=== PATIENT | female | born 1970 | race Hispanic/Latino ===

== ENCOUNTER 2018-11-23 07:52 | Outpatient (CLI) | payer OTHER ==
--- NOTE | 2018-11-23 09:49 | ULT ---
ULTRASOUND ABDOMEN: HISTORY: GERD. Abdominal pain. FINDINGS: The liver, pancreas, spleen, gallbladder, kidneys, and visualized portions of the aorta and IVC appea r normal. The common duct measures 2 mm in diameter. No free fluid is seen. IMPRESSION: Normal exam. POS: OFF
== END 2018-11-23 07:53 | disposition home or self-care (01) ==
LOC: BICULT 07:52
DX: K21.9 Gastro-esophageal reflux disease without esophagitis (principal); R10.9 Unspecified abdominal pain
CPT/HCPCS: 76700

== ENCOUNTER 2019-01-09 12:51 | Outpatient (CLI) | payer SELFPAY ==
[2019-01-09 14:23] LABS: #Eosinphils 0.2 thou/uL (0.0-0.7); #Monocytes 0.5 thou/uL (0.11-0.59); #Neutrophils 4.1 thou/uL (1.40-6.50); %Basophils 0.6 % (0.0-1.0); %Eosinophils 3.5 % (0.0-10.0); %Lymphocytes 29.5 % (21.0-51.0); %Monocytes 6.8 % (0.0-10.0); %Neutrophils 59.5 % (42.0-75.0); Hemoglobin 12.8 g/dL (12.0-16.0); Mean Corpuscular HGB CONC 32.6 g/dL (32.0-36.0); Mean Corpuscular Hemoglobin 30.2 pg (27.0-31.0); Mean Corpuscular Volume 92.6 fL (78.0-98.0); Mean Platelet Volume 7.7 fL (7.4-10.4); Platelet Count 302 thou/uL (130-400); RBC Distribution Width 13.3 % (11.5-14.5); Red Blood Cell (RBC) Count 4.24 mill/uL (4.20-5.40); White Blood Cell (WBC) Count 6.9 thou/uL (4.8-10.8)
[2019-01-09 14:48] LABS: ALT (SGPT) 21 U/L (8-55); AST (SGOT) 19 U/L (5-34); Albumin 4.2 g/dL (3.5-5.0); Alkaline Phosphatase 72 U/L (40-110); Anion Gap 9 mmol/L (10-20); BUN (Urea Nitrogen) 11 mg/dL (7.0-18.7); Bilirubin, Total 0.3 mg/dL (0.2-1.2); Calc. Creatinine Clearance 0 mL/min (70-130); Calcium 9.7 mg/dL (7.8-10.44); Carbon Dioxide 30 mmol/L (22-29); Chloride 105 mmol/L (98-107); Estimated GFR-MDRD 78; Globulin 3.3 g/dL (2.4-3.5); Glucose 93 mg/dL (70-105); Potassium 3.9 mmol/L (3.5-5.1); Protein, Total 7.5 g/dL (6.0-8.3); Sodium 140 mmol/L (136-145)
[2019-01-09 14:51] LABS: BHCG - Serum Negative (NEGATIVE); Pregs Control Background? CLEAR/WHITE (CLR/WHITE); Pregs Control Bar Appear? YES (CONTROL BAR)
== END 2019-01-09 12:52 | disposition home or self-care (01) ==
LOC: LABBT 12:51
PROVIDERS: ATTEND Surgery
DX: Z01.818 Encounter for other preprocedural examination (principal); K43.2 Incisional hernia without obstruction or gangrene
CPT/HCPCS: 80053; 84703; 85025; 93005; 93010

== ENCOUNTER 2019-01-24 06:00 | Inpatient (IN) | payer OTHER, SELFPAY ==
[2019-01-09 13:05] VITALS: BMI 27.3
[2019-01-24] MEDS ORDERED: Lidocaine 2% PF 5 ML VIAL ONE (06:45)
[2019-01-24] MEDS ORDERED: Bupivacaine 0.25% HCL 30 ML VIAL ONE (06:45)
[2019-01-24] MEDS ORDERED: Lidocaine 2% w/Epinephrine 1:200K 20 ML VIAL ONE (06:45)
[2019-01-24] MEDS ORDERED: Fentanyl 100 MCG/2 ML VIAL ONE ×2 (06:55→08:50)
[2019-01-24] MEDS ORDERED: Midazolam HCl 2 mg/2 ml Vial ONE (07:11)
--- NOTE | 2019-01-24 09:21 | OP ---
DATE OF PROCEDURE: 01/24/2019 PREOPERATIVE DIAGNOSIS: Incisional ventral hernia. PROCEDURES PERFORMED: Open ventral hernia repair, appendectomy. INDICATIONS: This is a 48-year-old female, who had several C-sections through a low midline incision. She developed an enlarging ventral hernia that was causing a lot of discomfort. FINDINGS: There is about an 8 cm defect, very large hernia sac. The appendix was about 8 inches long, very thin and was stuck within the adhesions in the hernia sac. DESCRIPTION OF PROCEDURE: After informed consent was obtained, the patient was taken to the operating room and given general endotracheal anesthesia. She was placed in supine position. Abdomen was prepped and draped in usual fashion. Local anesthesia was infiltrated subcutaneously and deep. A low midline incision was performed and the hernia sac was dissected out circumferentially. The hernia sac was then opened and lysis of adhesions was performed to reduce omentum that was within the hernia sac. I noticed there is really thin like 1.5 mm band that seemed just like thickened scar tissue or adhesion. It turned out to be a segment of very long appendix, so wind up dividing the mesoappendix between clamps and tying with 2-0 Vicryl suture. The base of the appendix was doubly ligated with ties and divided, sent to Pathology for further analysis. Because of this appendectomy, I was little hesitant about placing mesh. I was able to free up the fascia ledges. The fascia was closed with interrupted [id number] of #1 Prolene. Hemostasis was achieved with electrocautery. Now due to the fact that was a large hernia sac, there was a defect of subcu and so a drain was placed and brought out laterally through a separate stab wound. Then, the hemostasis was assured. The wound was thoroughly irrigated. Subcu reapproximated with interrupted 3-0 Vicryl. Skin was closed with a running subcuticular 4-0 Rapide. Steri-Strips applied. An abdominal binder was applied. The patient tolerated the procedure well, transferred to Recovery in good condition. Job ID: [id number]
[2019-01-24] MEDS ORDERED: Dexamethasone 20 MG/5 ML VIAL ONE (09:30)
[2019-01-24] MEDS ORDERED: Ondansetron PF 4 MG/2 ML Vial ONE ×2 (09:30→10:35)
[2019-01-24] MEDS ORDERED: ePHEDrine/0.9% NaCl/PF SYRINGE 50 mg/10 ml ONE (09:30)
[2019-01-24] MEDS ORDERED: Glycopyrrolate 0.2 MG/ML 5 ML SYRINGE ONE (09:30)
[2019-01-24] MEDS ORDERED: PROPOFOL 200 MG/20 ML VIAL ONE (09:30)
[2019-01-24] MEDS ORDERED: Rocuronium Bromide 10 MG/ML (10ML VIAL) ONE (09:30)
[2019-01-24] MEDS ORDERED: Ketorolac Tromethamine 30 MG/ML VIAL ONE ×2 (09:30→14:22)
[2019-01-24] MEDS ORDERED: Lidocaine 1% PF 5 ML VIAL ONE (09:30)
[2019-01-24] MEDS ORDERED: Morphine 4 MG/ML VIAL ONE (09:54)
[2019-01-24] MEDS ORDERED: Mag-Al 1200 mg/1200 mg/30 ML UDCUP PO PRN (10:39)
[2019-01-24] MEDS ORDERED: Calcium Carbonate 500 MG ChewTAB PO PRN (10:39)
[2019-01-24] MEDS ORDERED: Ondansetron PF 4 MG/2 ML Vial IVP PRN (10:39)
[2019-01-24] MEDS ORDERED: HYDROcodone/Acetaminophen 10/325 mg Tablet PO PRN ×2 (10:39)
[2019-01-24] MEDS ORDERED: Morphine 2 MG/ML SYRINGE SLOW IVP PRN (10:39)
[2019-01-24] MEDS ORDERED: hydrALAZINE 20 MG/ML VIAL SLOW IVP PRN (10:39)
[2019-01-24] MEDS ORDERED: Morphine 4 MG/ML VIAL SLOW IVP PRN (10:39)
[2019-01-24] MEDS ORDERED: Dextrose 5% in Water 1,000 ML IV PRN (10:39)
[2019-01-24] MEDS ORDERED: Dextrose 50% Abboject 50 ML SYRINGE SLOW IVP PRN (10:39)
[2019-01-24] MEDS ORDERED: Promethazine HCl 25 MG/ML VIAL IM PRN (10:39)
[2019-01-24] MEDS ORDERED: Promethazine HCl 25 MG/ML VIAL ONE ×2 (12:15→12:34)
[2019-01-24] MEDS ORDERED: NS 0.9% w/ 20 MEQ KCL 0 ML ONE (13:23)
[2019-01-24] MEDS ORDERED: D5 1/2 NS w/20 mEq KCL 1,000 ML ONE (13:24)
[2019-01-24] MEDS ORDERED: Morphine 2 MG/ML SYRINGE ONE (13:34)
[2019-01-24] MEDS ORDERED: cefOXitin 2 GM in Sodium Chloride 0.9% 100 ML IVPB SCH (14:00)
[2019-01-24] MEDS ORDERED: HYDROcodone/Acetaminophen 5/325 mg Tablet ONE (14:22)
[2019-01-24] MEDS ORDERED: ceFOXitin 2 GM/50 ML Duplex BAG ONE (14:40)
[2019-01-24] MEDS ORDERED: Sodium Chloride 0.9% 0 ML ONE (14:40)
[2019-01-24] MEDS: Ketorolac Tromethamine 30 MG/ML VIAL IVP SCH ×3 (15:00→23:53)
[2019-01-24] MEDS: D5 1/2 NS w/20 mEq KCL 1,000 ML IV SCH ×2 (16:05→21:38)
[2019-01-24] MEDS: cefOXitin Sodium/Dextrose,Iso 2 GM in Premix Bag 1 BAG IVPB SCH ×2 (16:16→21:36)
[2019-01-24] MEDS ORDERED: Labetalol HCl 100 MG/20 ML VIAL ONE (20:52)
[2019-01-24] MEDS: Famotidine 20 MG TAB PO SCH (21:34)
[2019-01-24] MEDS: Famotidine/PF 20 mg/2ml Vial SLOW IVP SCH (23:38)
[2019-01-25] MEDS: Ketorolac Tromethamine 30 MG/ML VIAL IVP SCH ×2 (05:52→13:39)
[2019-01-25] MEDS: cefOXitin Sodium/Dextrose,Iso 2 GM in Premix Bag 1 BAG IVPB SCH ×2 (05:53→13:37)
[2019-01-25] MEDS: D5 1/2 NS w/20 mEq KCL 1,000 ML IV SCH ×2 (06:01→08:01)
[2019-01-25 06:10] LABS: #Lymphocytes 1.8 thou/uL (1.20-3.40); #Monocytes 0.8 thou/uL (0.11-0.59); #Neutrophils 8.2 thou/uL (1.40-6.50); %Basophils 0.3 % (0.0-1.0); %Eosinophils 0.3 % (0.0-10.0); %Lymphocytes 16.5 % (21.0-51.0); %Monocytes 7.2 % (0.0-10.0); %Neutrophils 75.7 % (42.0-75.0); Hemoglobin 11.5 g/dL (12.0-16.0); Mean Corpuscular HGB CONC 33.3 g/dL (32.0-36.0); Mean Corpuscular Hemoglobin 31.4 pg (27.0-31.0); Mean Corpuscular Volume 94.1 fL (78.0-98.0); Mean Platelet Volume 7.2 fL (7.4-10.4); Platelet Count 274 thou/uL (130-400); RBC Distribution Width 12.7 % (11.5-14.5); Red Blood Cell (RBC) Count 3.68 mill/uL (4.20-5.40); White Blood Cell (WBC) Count 10.8 thou/uL (4.8-10.8)
[2019-01-25 06:34] LABS: ALT (SGPT) 15 U/L (8-55); AST (SGOT) 21 U/L (5-34); Albumin 3.3 g/dL (3.5-5.0); Alkaline Phosphatase 61 U/L (40-110); Anion Gap 10 mmol/L (10-20); BUN (Urea Nitrogen) 10 mg/dL (7.0-18.7); Bilirubin, Total 0.5 mg/dL (0.2-1.2); Calc. Creatinine Clearance 81 mL/min (70-130); Carbon Dioxide 25 mmol/L (22-29); Chloride 106 mmol/L (98-107); Estimated GFR-MDRD 71; Globulin 2.9 g/dL (2.4-3.5); Glucose 117 mg/dL (70-105); Protein, Total 6.2 g/dL (6.0-8.3); Sodium 137 mmol/L (136-145)
[2019-01-25] MEDS: Famotidine 20 MG TAB PO SCH (07:59)
[2019-01-25] MEDS ORDERED: FLU VACC QS2019-20(6MOS UP)/PF 60 MCG/0.5 ML SYRINGE IM ONE (09:00)
[2019-01-25] MEDS ORDERED: Enoxaparin Sodium 40 MG/0.4 ML SYRINGE SC SCH (09:00)
[2019-01-25] MEDS: Famotidine/PF 20 mg/2ml Vial SLOW IVP SCH (09:42)
[2019-01-25 13:50] VITALS: BP 137/83; TEMP 98.8
--- NOTE | 2019-01-26 13:48 | DIS ---
DATE OF ADMISSION: 01/24/2019 DATE OF DISCHARGE: 01/25/2019 The patient was admitted for pain control. She is doing better. [facility] She will follow up with me on Tuesday for drain removal. Job ID: [id number]
== END 2019-01-25 16:28 | disposition home or self-care (01) | DRG 343 ==
LOC: SDC 06:00 → SJJU 10:43
PROVIDERS: ADMIT Surgery; ATTEND Surgery
PROC: 0WQF0ZZ Repair Abdominal Wall, Open Approach (ICD-10-PCS; principal; 2019-01-24)
PROC: 0DTJ0ZZ Resection of Appendix, Open Approach (ICD-10-PCS; 2019-01-24)
DX: K43.2 Incisional hernia without obstruction or gangrene (principal); I10 Essential (primary) hypertension; Z79.899 Other long term (current) drug therapy; Z98.890 Other specified postprocedural states
CPT/HCPCS: 36415; 80053; 85025; 88304; J0690; J0694; J1100; J1650; J1885; J2001; J2250; J2270; J2405; J2550; J2704; J3010; J3480; J3490; S0020